=== PATIENT | male | born 1940 | race Caucasian/White ===

== ENCOUNTER 2017-01-10 22:22 | Emergency (ER) | payer MEDICARE, OTHER ==
[~2017-01-10] VITALS: Ht 175.3 cm; Wt 73.9 kg
[~2017-01-10 22:22] MED LIST: ALPR0.5T8 PO; ASPI81TA2 PO; CLOP75TA2 PO; FLUO-120 PO; GLIM2TAB2 PO; HYDR-552 PO; HYDR12.55 PO; LANS30CA10 PO; LEVO137T24 PO; LOSA100T15 PO; Losartan Potassium PO; METF10002 PO; WARF5TAB6 PO
--- NOTE | 2017-01-10 22:25 | NUR ---
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 NONDIAPHORETIC. VSS. BREATHING EVEN AND UNLABORED. PLACED ON 02 CANNULA AT 2LPM, PER PATIENT, HE USES O2 2LPM NC AT HOME. PLACED ON CARDIAC AND VS MONITORING. GOWNED. SAFETY AND COMFORT MEASURES RENDERED. AWAITING FOR ER MD RIVERA.
--- NOTE | 2017-01-10 22:27 | NUR ---
DR MARCOS AT BEDSIDE TO EVAL.
--- NOTE | 2017-01-10 22:45 | NUR ---
XR AT BEDSIDE.
--- NOTE | 2017-01-10 22:53 | NUR ---
PRINT [employer]EL[employer] AT BEDSIDE TO DRAW BLOOD.
--- NOTE | 2017-01-10 23:19 | NUR ---
PATIENT EATING FOOD AND JUICE. FAMILY AT BEDSIDE. PT DOES NOT WANT TO PROVIDE URINE AT THIS TIME AND SAID HE WANTS TO EAT FIRST.
[2017-01-10 23:41] LABS: CARBON DIOXIDE 29 mmol/L (21-32); CHLORIDE 102 mmol/L (98-107); GLUCOSE 90 mg/dL (74-106); POTASSIUM 4.1 mmol/L (3.5-5.1); SODIUM SERUM 137 mmol/L (136-145)
[2017-01-10 23:42] LABS: CALCIUM, SERUM 7.9 mg/dL (8.5-10.1); CREATININE 1.1 mg/dL (0.6-1.3); UREA NITROGEN, BLOOD 25 mg/dL (7-18)
[2017-01-10 23:45] LABS: HEMATOCRIT 32 % (39-51); HEMOGLOBIN 10.3 g/dL (13.5-17.5); RED BLOOD CELL COUNT(AUTO) 3.67 MIL/uL (4.5-6.0); WHITE BLOOD COUNT (AUTO) 7.6 K/uL (4.3-11.0)
[2017-01-10 23:46] LABS: EOSINOPHILS % (AUTO) 0.4 % (0.0-6.0); LYMPHOCYTES % (AUTO) 8.2 % (20.0-44.0); MEAN CORPUSCULAR HEMOGLOBIN 28 PG (26.0-33.0); MEAN CORPUSCULAR HGB CONC 32 g/dl (31.0-36.0); MEAN CORPUSCULAR VOLUME 88 fL (80-96); NEUTROPHILS % (AUTO) 89.4 % (43.0-81.0); PLATELET COUNT (AUTO) 392 /CMM (150-450); RDW COEFFICIENT OF VARIATION 23.1 (11.5-15.0)
[2017-01-10 23:49] LABS: TROPONIN I < 0.017 ng/mL (0.00-0.056)
[2017-01-10 23:51] LABS: ALANINE AMINOTRANSFERASE 13 U/L (12-78); ALBUMIN 3.1 g/dL (3.4-5.0); ALKALINE PHOSPHATASE 84 U/L (46-116); ASPARTATE AMINOTRANSFERASE 18 U/L (15-37); B-TYPE NATRIURETIC PEPTIDE 1346 PG/ML (0-125); BILIRUBIN,DIRECT 0.1 mg/dL (0.0-0.2); BILIRUBIN,TOTAL 0.5 mg/dL (0.2-1.0)
[2017-01-10 23:52] LABS: TOTAL PROTEIN, SERUM 7.5 g/dL (6.4-8.2)
[2017-01-10 23:56] LABS: INR 1.23 (0.87-1.13); PROTHROMBIN TIME 13.3 SECS (9.5-12.7)
[2017-01-11 00:03] LABS: LYMPHOCYTES # (AUTO) 0.6 /CMM (0.8-4.8); MONOCYTES # (AUTO) 0.2 /CMM (0.1-1.30); NEUTROPHILS # (AUTO) 6.8 /CMM (1.8-8.9)
--- NOTE | 2017-01-11 00:15 | NUR ---
Dr Paez at bedside talking with patient and family. Patient and family decided to leave [place].
--- NOTE | 2017-01-11 00:20 | NUR ---
IV removed. Catheter intact and site benign. Pressure and 4x4 applied to site. No bleeding noted. Patient discharged to home in stable condition. Written and verbal after care instructions given. Patient verbalizes understanding of instruction. Patient wheeled to private car, family with patient. vss. No further complaints.
[2017-01-11 00:21] VITALS: BP 110/56
== END 2017-01-11 00:22 | disposition home or self-care (01) ==
LOC: ER 22:23
DX: E11.649 Type 2 diabetes mellitus with hypoglycemia without coma (principal); I11.0 Hypertensive heart disease with heart failure; I50.9 Heart failure, unspecified; I48.91 Unspecified atrial fibrillation; J18.9 Pneumonia, unspecified organism; K21.9 Gastro-esophageal reflux disease without esophagitis; J90 Pleural effusion, not elsewhere classified; Z79.01 Long term (current) use of anticoagulants; Z79.82 Long term (current) use of aspirin; Z85.118 Personal history of other malignant neoplasm of bronchus and lung; Z95.1 Presence of aortocoronary bypass graft; Z96.643 Presence of artificial hip joint, bilateral; Z53.20 Procedure and treatment not carried out because of patient's decision for unspecified reasons
CPT/HCPCS: 36415; 71010; 80048; 80076; 82962; 83605; 83880; 84484; 85025; 85730; 87040 ×2; 93005; 99285; A4606; Z7610